=== PATIENT | female | born 1955 | race Caucasian/White ===

== ENCOUNTER → 2017-03-14 | Outpatient (CLI) | payer OTHER ==
--- NOTE | 2017-03-14 10:30 | MM ---
Reason for exam: additional evaluation requested from prior study. Last mammogram was performed 1 year ago. History: Patient is postmenopausal, has history of breast cancer at age 53, had previous chest radiation therapy at age 53, and history of other cancer. Reduction of the left breast, November 2010. Malignant right breast needle localzation of the right breast, September 16, 2009. Lumpectomy of the right breast, September 16, 2009. Malignant right mammotome panel of the right breast, September 07, 2009. Chemotherapy, 2009. Radiation therapy, 2009. Physical Findings: Nurse did not find any significant physical abnormalities on exam. MG Diagnostic Mammo w CAD EUGENIE Bilateral CC and MLO view(s) were taken. Prior study comparison: March 11, 2016, bilateral MG diagnostic mammo w CAD EUGENIE. March 09, 2015, bilateral MG diagnostic mammo w CAD EUGENIE. There are scattered fibroglandular densities. Post surgical changes in the right breast, stable. No significant new findings when compared with previous films. These results were verbally communicated with the patient and result sheet given to the patient on 03/14/17. ASSESSMENT: Benign, BI-RAD 2 RECOMMENDATION: Routine screening mammogram of both breasts in 1 year.
--- NOTE | 2017-03-14 10:42 | XR ---
EXAMINATION TYPE: XR chest 2V DATE OF EXAM: 03/14/2017 COMPARISON: 03/11/2016 INDICATION: Breast cancer TECHNIQUE: Frontal and lateral views of the chest are obtained. FINDINGS: The heart size is normal. The pulmonary vasculature is normal. The lungs are clear. Postsurgical changes are within the right breast. IMPRESSION: 1. No suspicious acute changes. No suspicious changes within the [id number] for metastatic disease .
== END | disposition home or self-care (01) ==
LOC: RADMAMWWP 08:50
PROVIDERS: ATTEND Internal Medicine Hematology & Oncology
DX: Z08 Encounter for follow-up examination after completed treatment for malignant neoplasm (principal); Z85.3 Personal history of malignant neoplasm of breast; I10 Essential (primary) hypertension; Z71.3 Dietary counseling and surveillance
CPT/HCPCS: 71020; G0204

== ENCOUNTER → 2018-03-15 | Outpatient (CLI) | payer OTHER ==
--- NOTE | 2018-03-15 14:31 | MM ---
Reason for exam: additional evaluation requested from prior study. Last mammogram was performed 1 year ago. History: Patient is postmenopausal, has history of breast cancer at age 53, had previous chest radiation therapy at age 53, and history of other cancer. Reduction of the left breast, November 2010. Malignant right breast needle localzation of the right breast, September 16, 2009. Lumpectomy of the right breast, September 16, 2009. Malignant right mammotome panel of the right breast, September 07, 2009. Chemotherapy, 2009. Radiation therapy, 2009. Physical Findings: Nurse did not find any significant physical abnormalities on exam. MG Diagnostic Mammo w CAD EUGENIE Bilateral CC and MLO view(s) were taken. Prior study comparison: March 14, 2017, bilateral MG diagnostic mammo w CAD [facility]. March 11, 2016, bilateral MG diagnostic mammo w CAD EUGENIE. There are scattered fibroglandular densities. Post surgical and post therapy changes right breast. Two oil cysts at the lumpectomy site. Some gradually increasing calcifications are also present here, suspect developing dystrophic calcifications. 6 month follow up recommended. These results were verbally communicated with the patient and result sheet given to the patient on 03/15/18. ASSESSMENT: Probably benign, BI-RAD 3 RECOMMENDATION: Follow-up diagnostic mammogram of the right breast in 6 months.
== END | disposition home or self-care (01) ==
LOC: RADMAMWWP 13:28
PROVIDERS: ATTEND Internal Medicine Hematology & Oncology
DX: Z08 Encounter for follow-up examination after completed treatment for malignant neoplasm (principal); Z85.3 Personal history of malignant neoplasm of breast
CPT/HCPCS: 77066

== ENCOUNTER → 2018-09-13 | Outpatient (CLI) | payer OTHER ==
--- NOTE | 2018-09-13 10:24 | MM ---
Reason for exam: follow-up at short interval from prior study. Last mammogram was performed 6 months ago. History: Patient is postmenopausal, has history of breast cancer at age 53, had previous chest radiation therapy at age 53, and history of other cancer. Reduction of the left breast, November 2010. Malignant right breast needle localzation of the right breast, September 16, 2009. Lumpectomy of the right breast, September 16, 2009. Malignant right mammotome panel of the right breast, September 07, 2009. Chemotherapy, 2009. Radiation therapy, 2009. Physical Findings: Nurse did not find any significant physical abnormalities on exam. MG Diagnostic Mammo RT w CAD CC and MLO view(s) were taken of the right breast. Prior study comparison: March 15, 2018, bilateral MG diagnostic mammo w CAD [facility]. March 14, 2017, bilateral MG diagnostic mammo w CAD EUGENIE. There are scattered fibroglandular densities. Stable post operative distortion with dystrophic calcifications. These results were verbally communicated with the patient and result sheet given to the patient on 09/13/18. ASSESSMENT: Benign, BI-RAD 2 RECOMMENDATION: Follow-up diagnostic mammogram of both breasts in 6 months. Back on schedule for February 2019.
== END | disposition home or self-care (01) ==
LOC: RADMAMWWP 09:33
PROVIDERS: ATTEND Obstetrics & Gynecology
DX: R92.8 Other abnormal and inconclusive findings on diagnostic imaging of breast (principal)
CPT/HCPCS: 77065

== ENCOUNTER → 2019-03-18 | Outpatient (CLI) | payer OTHER ==
--- NOTE | 2019-03-18 10:44 | MM ---
Reason for exam: follow-up at short interval from prior study. Last mammogram was performed 6 months ago. History: Patient is postmenopausal, has history of breast cancer at age 53, had previous chest radiation therapy at age 53, and history of other cancer. Reduction of the left breast, November 2010. Malignant right breast needle localzation of the right breast, September 16, 2009. Lumpectomy of the right breast, September 16, 2009. Malignant right mammotome panel of the right breast, September 07, 2009. Chemotherapy, 2009. Radiation therapy, 2009. Took hormonal contraceptives beginning at age 17. Physical Findings: Nurse did not find any significant physical abnormalities on exam. MG Diagnostic Mammo w CAD EUGENIE Bilateral CC and MLO view(s) were taken. Prior study comparison: September 13, 2018, right breast MG diagnostic mammo RT w CAD. March 15, 2018, bilateral MG diagnostic mammo w CAD [facility]IE. There are scattered fibroglandular densities. Post therapy change. These results were verbally communicated with the patient and result sheet given to the patient on 03/18/19. ASSESSMENT: Benign, BI-RAD 2 RECOMMENDATION: Follow-up diagnostic mammogram of both breasts in 1 year.
== END | disposition home or self-care (01) ==
LOC: RADMAMWWP 09:30
PROVIDERS: ATTEND Internal Medicine Hematology & Oncology
DX: Z08 Encounter for follow-up examination after completed treatment for malignant neoplasm (principal); Z85.3 Personal history of malignant neoplasm of breast
CPT/HCPCS: 77066

== ENCOUNTER → 2020-05-06 | Outpatient (CLI) | payer OTHER ==
--- NOTE | 2020-05-07 08:23 | MM ---
Reason for exam: additional evaluation requested from abnormal screening. Last mammogram was performed 1 year and 2 months ago. History: Patient is postmenopausal, has history of breast cancer at age 53, had previous chest radiation therapy at age 53, and history of other cancer. Reduction of the left breast, November 2010. Malignant right breast needle localzation of the right breast, September 16, 2009. Lumpectomy of the right breast, September 16, 2009. Malignant right mammotome panel of the right breast, September 07, 2009. Chemotherapy, 2009. Radiation therapy, 2009. Took hormonal contraceptives for 2 years beginning at age 17. Physical Findings: Nurse did not find any significant physical abnormalities on exam. MG Diagnostic Mammo w CAD EUGENIE Bilateral CC and MLO view(s) were taken. Prior study comparison: March 18, 2019, bilateral MG diagnostic mammo w CAD [facility]. September 13, 2018, right breast MG diagnostic mammo RT w CAD. There are scattered fibroglandular densities. Stable post operative changes right breast. No significant new findings when compared with previous films. These results were verbally communicated with the patient and result sheet given to the patient on 05/06/20. ASSESSMENT: Benign, BI-RAD 2 RECOMMENDATION: Follow-up diagnostic mammogram of both breasts in 1 year.
== END | disposition home or self-care (01) ==
LOC: RADMAMWWP 14:19
PROVIDERS: ATTEND Internal Medicine Hematology & Oncology
DX: Z08 Encounter for follow-up examination after completed treatment for malignant neoplasm (principal); Z85.3 Personal history of malignant neoplasm of breast
CPT/HCPCS: 77066

== ENCOUNTER → 2021-05-07 | Outpatient (CLI) | payer MEDICARE, OTHER ==
--- NOTE | 2021-05-10 12:33 | MM ---
Reason for exam: additional evaluation requested from prior study. Last mammogram was performed 1 year ago. History: Patient is postmenopausal, has history of breast cancer at age 53, had previous chest radiation therapy at age 53, and history of other cancer. Reduction of the left breast, November 2010. Malignant right breast needle localzation of the right breast, September 16, 2009. Lumpectomy of the right breast, September 16, 2009. Malignant right mammotome panel of the right breast, September 07, 2009. Chemotherapy, 2009. Radiation therapy, 2009. Took hormonal contraceptives for 2 years beginning at age 17. Physical Findings: Nurse did not find any significant physical abnormalities on exam. MG Diagnostic Mammo w CAD EUGENIE Bilateral CC and MLO view(s) were taken. Prior study comparison: May 06, 2020, bilateral MG diagnostic mammo w CAD [facility]. March 18, 2019, bilateral MG diagnostic mammo w CAD [facility]GENIE. There are scattered fibroglandular densities. Post surgical and post therapy change right breast. Associated benign fat necrosis calcifications. No significant new findings when compared with previous films. These results were verbally communicated with the patient and result sheet given to the patient on 05/07/21. ASSESSMENT: Benign, BI-RAD 2 RECOMMENDATION: Follow-up diagnostic mammogram of both breasts in 1 year.
== END | disposition home or self-care (01) ==
LOC: RADMAMWWP 12:45
PROVIDERS: ATTEND Internal Medicine Hematology & Oncology
DX: R92.1 Mammographic calcification found on diagnostic imaging of breast (principal)
CPT/HCPCS: 77066

== ENCOUNTER 2022-04-08 06:50 | Day surgery (SDC) | payer MEDICARE, OTHER ==
[2022-04-06 14:13] VITALS: BMI 33.6
[~2022-04-08 06:50] MED LIST: DEXAMETHASONE SOD PHOSPHATE 4 MG/ML 1 ML VIAL IV ONE; LACTATED RINGERS 1,000 ML IV SCH; MIDAZOLAM 2 MG/2 ML VIAL IV PRN; ONDANSETRON 4 MG/2 ML VIAL IVP ONE
[2022-04-08] MEDS ORDERED: fentaNYL (PF) 50 MCG/ML 2 ML AMP IV PRN (07:00)
[2022-04-08] MEDS ORDERED: MIDAZOLAM 2 MG/2 ML VIAL ONE (08:39)
[2022-04-08] MEDS ORDERED: GLYCOPYRROLATE 0.2 MG/ML 2 ML VIAL ONE (08:39)
[2022-04-08] MEDS ORDERED: PHENYLEPHRINE-0.9% NACL SYG 1,000 MCG/10 ML SYRINGE ONE (08:39)
[2022-04-08] MEDS ORDERED: PROPOFOL 10 MG/ML 20 ML VIAL IV ONE (08:39)
[2022-04-08] MEDS ORDERED: KETOROLAC 30 MG/ML 1 ML VIAL ONE (08:39)
[2022-04-08] MEDS ORDERED: NEOSTIGMINE 1 MG/ML 10 ML VIAL ONE (08:39)
[2022-04-08] MEDS ORDERED: SUCCINYLCHOLINE CHLORIDE 200 MG/10 ML VIAL IV ONE (08:39)
[2022-04-08] MEDS ORDERED: ROCURONIUM 10 MG/ML (5 ML VIAL) IV ONE (08:39)
[2022-04-08] MEDS ORDERED: fentaNYL (PF) 50 MCG/ML 2 ML AMP ONE (08:39)
[2022-04-08] MEDS ORDERED: ceFAZolin 1,000 MG in SODIUM CHLORIDE 0.9% 1,000 ML IRRIGATION ONE (08:44)
[2022-04-08 10:08] VITALS: TEMP 97.1
--- NOTE | 2022-04-08 10:17 | P.OP ---
Date of Procedure: 04/08/22 Preoperative Diagnosis: Left Achilles tendinitis Postoperative Diagnosis: Same Procedure(s) Performed: Secondary repair of left Achilles tendon with allograft Implants: Arthrex [id number] Anesthesia: MAYOA Surgeon: Main Wells Estimated Blood Loss (ml): 2 Pathology: other (Achilles tendon left) Condition: stable Disposition: PACU Description of Procedure: The patient was brought into the operating room. Timeout was taken to confirm correct patient identifiers, correct site of surgery and correct procedure. When all staff in the room were in agreement with the timeout, the patient was induced and placed under general anesthesia. The patient was then rolled onto the operative room table in the prone position. Appropriate padding was placed beneath any bony prominences and in the thoracic area. When anesthesia was satisfied with the positioning the patient, a well-padded tourniquet was placed on the left thigh. The left leg was then prepped and draped usual manner. The leg was exsanguinated and the tourniquet inflated to 250 mmHg. Attention was directed over the Achilles tendon just proximal to the insertion. A linear incision was made medial to the midline of the Achilles tendon. The incision was deepened down to the subcutaneous tissue careful to identify, avoid, and retract any neurovascular structures and cauterize any bleeding vessels. Blunt dissection was taken through the saphenous layer down to the peritenon. Peritenon was longitudinally incised and carefully reflected medially and laterally. 2 semielliptical converging incisions made in the area of the Achilles tendon that was thickened and pathologic. This is done full- thickness to the tendon to underlying adipose tissue. The interposing piece of pathologic tendon was removed and will be sent to pathology for evaluation further debridement of any abnormal appearing tendon was also performed at this time once completed the wound is thoroughly irrigated with an biotic saline. 0 Vicryl was then used to sew the Achilles tendon [id number]. The peritenon was then repaired with 4-0 Monocryl. An Arthrex AFLEX 500 allograft was placed over the repair site. The lateral side of the graft was sutured in place with 4-0 Monocryl and then the graft was pulled under tension and then cut to the appropriate size. The distal proximal ends were then tacked down to the Achilles tendon under tension and then the medial side repaired over the tendon. The graft was lying flat without any wrinkling. The wound is again irrigated thoroughly with antibiotic saline. Subcu closure was done with 4-0 Monocryl and skin closure done with 4-0 Stratafix in a running subcuticular manner. Dermal glue was applied across incision allowed to dry. Steri-Strips placed across incision. An Arthrex jumpstart dressing was placed directly over the incision and a bulky dry dressing applied to the ankle. The tourniquet was released and capillary refill return to all digits on the left foot. Then the patient was placed in a well-padded, well molded plaster posterior mold/sugar tong splint. Ankle was held in neutral position as it dried. The patient is a rolled onto the transfer table at which point anesthesia was reversed and then she was taken recovery with vital signs stable.
[2022-04-08] MEDS ORDERED: ALBUTEROL NEBULIZED 2.5 MG/3 ML INHALATION ONE (10:23)
[2022-04-08] MEDS ORDERED: HYDROmorphone 0.5 MG/0.5 ML SYRINGE IVP ONE ×3 (10:25→10:49)
[2022-04-08] MEDS ORDERED: LACTATED RINGERS 1,000 ML IV ONE (11:27)
[2022-04-08 11:49] VITALS: RESP 18
[2022-04-08 12:08] VITALS: BP 119/70; PULSE 82
== END 2022-04-08 13:25 | disposition home or self-care (01) ==
LOC: OR 06:50
PROVIDERS: ATTEND Podiatrist
DX: M76.62 Achilles tendinitis, left leg (principal); I10 Essential (primary) hypertension; Z97.3 Presence of spectacles and contact lenses; Z79.899 Other long term (current) drug therapy; Z88.5 Allergy status to narcotic agent; Z82.49 Family history of ischemic heart disease and other diseases of the circulatory system; Z83.3 Family history of diabetes mellitus; Z87.891 Personal history of nicotine dependence
CPT/HCPCS: 88304; 27654; Q4125; J2250; J0330; J1100; J2710; J0690 ×2; J2405; J3010; J1885; J2370; J2704; J1170

== ENCOUNTER → 2022-05-10 | Outpatient (CLI) | payer MEDICARE, OTHER ==
--- NOTE | 2022-05-11 07:41 | MM ---
Reason for Exam: Screening (asymptomatic). Last screening mammogram was performed 12 month(s) ago. Patient History: Menarche at age 12. First Full-Term at age 26. Postmenopausal. Patient has history of breast feeding. Other cancer. Breast cancer, right, age 53. Previous chest radiation therapy at age 53. Previous chemotherapy at age 53. Hormonal Contraceptives for 2 years from age 17 until age 19. 11/2010, Reduction on the Left side. 09/16/2009, Lumpectomy on the Right side. 09/16/2009, Malignant Excisional Biopsy on the right side. 09/07/2009, Malignant Core Biopsy on the right side. 2009, Chemotherapy. 2009, Radiation Therapy. Prior Study Comparison: 11/19/1992 Screening Mammogram, [facility]. 02/28/2011 Bilateral Diagnostic Mammogram, [facility]. 03/01/2012 Bilateral Diagnostic Mammogram, [facility]. 03/04/2013 Bilateral Diagnostic Mammogram, [facility]. 03/05/2014 Bilateral Diagnostic Mammogram, [facility]. 03/09/2015 Bilateral Diagnostic Mammogram, [facility]. 03/11/2016 Bilateral Diagnostic Mammogram, [facility]. 03/14/2017 Bilateral Diagnostic Mammogram, [facility]. 03/15/2018 Bilateral Diagnostic Mammogram, [facility]. 09/13/2018 Right Diagnostic Mammogram, [facility]. 03/18/2019 Bilateral Diagnostic Mammogram, [facility]. 05/06/2020 Bilateral Diagnostic Mammogram, [facility]. 05/07/2021 Bilateral Diagnostic Mammogram, [facility]. Tissue Density: There are scattered fibroglandular densities. Findings: Analyzed By CAD. There is no suspicious group of microcalcifications or new suspicious mass in either breast. Postop distortion right breast. Overall Assessment: Benign, BI-RAD 2 Management: Screening Mammogram of both breasts in 1 year. A clinical breast exam by your physician is recommended on an annual basis and results should be correlated with mammographic findings. Electronically signed and approved by: Ean Correia M.D. Radiologis
== END | disposition home or self-care (01) ==
LOC: RADMAMWWP 08:56
PROVIDERS: ATTEND Internal Medicine Hematology & Oncology
DX: Z12.31 Encounter for screening mammogram for malignant neoplasm of breast (principal); Z78.0 Asymptomatic menopausal state
CPT/HCPCS: 77063; 77067

== ENCOUNTER → 2023-05-12 | Outpatient (CLI) | payer MEDICARE, OTHER ==
--- NOTE | 2023-05-15 07:38 | MM ---
Reason for Exam: Screening (asymptomatic). Last screening mammogram was performed 12 month(s) ago. Patient History: Menarche at age 12. First Full-Term at age 26. Postmenopausal. Patient has history of breast feeding. Other cancer. Breast cancer, right, age 53. Previous chest radiation therapy at age 53. Previous chemotherapy at age 53. Hormonal Contraceptives for 2 years from age 17 until age 19. 11/2010, Reduction on the Left side. 09/16/2009, Lumpectomy on the Right side. 09/16/2009, Malignant Excisional Biopsy on the right side. 09/07/2009, Malignant Core Biopsy on the right side. 2009, Chemotherapy. 2009, Radiation Therapy. Prior Study Comparison: 05/06/2020 Bilateral Diagnostic Mammogram, [facility]. 05/07/2021 Bilateral Diagnostic Mammogram, [facility]. 05/10/2022 Bilateral MG 3D screening mammo w/cad, [facility]. Tissue Density: The breast tissue is almost entirely fat. Findings: Analyzed By CAD. Right breast biopsy clip. There is no suspicious group of microcalcifications or new suspicious mass. Benign-appearing calcifications bilaterally. Overall Assessment: Benign, BI-RAD 2 Management: Screening Mammogram of both breasts in [address] [facility] will attempt to contact patient to return for supplemental views and ultrasound if indicated. Patient should continue monthly self-breast exams. A clinical breast exam by your physician is recommended on an annual basis. This exam should not preclude additional follow-up of suspicious palpable abnormalities. Note on Erin scores and lifetime risk: 1. A Erin score greater than 3% is considered moderate risk. If this is the case, consider specialist referral to assess eligibility for a risk reducing agent. 2. If overall lifetime risk for the development of breast cancer is 20% or higher, the patient may qualify for future screening with alternating mammogram and breast MRI. Electronically signed and approved by: iMna Rahman DO
== END | disposition home or self-care (01) ==
LOC: RADMAMWWP 09:51
PROVIDERS: ATTEND Internal Medicine Hematology & Oncology
DX: Z12.31 Encounter for screening mammogram for malignant neoplasm of breast (principal); Z78.0 Asymptomatic menopausal state; Z85.3 Personal history of malignant neoplasm of breast
CPT/HCPCS: 77067

== ENCOUNTER → 2024-05-13 | Outpatient (CLI) | payer MEDICARE, OTHER ==
--- NOTE | 2024-05-14 07:53 | MM ---
Reason for Exam: Screening (asymptomatic). Last screening mammogram was performed 12 month(s) ago. Patient History: Menarche at age 12. First Full-Term at age 26. Postmenopausal. Patient has history of breast feeding. Other cancer. Breast cancer, right, age 53. Previous chest radiation therapy at age 53. Previous chemotherapy at age 53. Hormonal Contraceptives for 2 years from age 17 until age 19. 11/2010, Reduction on the Left side. 09/16/2009, Lumpectomy on the Right side. 09/16/2009, Malignant Excisional Biopsy on the right side. 09/07/2009, Malignant Core Biopsy on the right side. 2009, Chemotherapy. 2009, Radiation Therapy. Prior Study Comparison: 05/07/2021 Bilateral Diagnostic Mammogram, [facility]. 05/10/2022 Bilateral MG 3D screening mammo w/cad, [facility]. 05/12/2023 Bilateral MG screening mammo w CAD, [facility]. Tissue Density: There are scattered areas of fibroglandular density. Findings: Analyzed By CAD. There is no suspicious group of microcalcifications or new suspicious mass in either breast. Post therapeutic changes involving the right breast. Chronic nodularity is stable. Unchanged from 2019. Overall Assessment: Benign, BI-RAD 2 Management: Screening Mammogram of both breasts in 1 year. . Patient should continue monthly self-breast exams. A clinical breast exam by your physician is recommended on an annual basis. This exam should not preclude additional follow-up of suspicious palpable abnormalities. Note on Erin scores and lifetime risk: 1. A Erin score greater than 3% is considered moderate risk. If this is the case, consider specialist referral to assess eligibility for a risk reducing agent. 2. If overall lifetime risk for the development of breast cancer is 20% or higher, the patient may qualify for future screening with alternating mammogram and breast MRI. [facility], , 05/14/2024 7:48 AM. Electronically signed and approved by: Az Steen M.D. Radiologis
== END | disposition home or self-care (01) ==
LOC: RADMAMWWP 10:04
PROVIDERS: ATTEND Internal Medicine Hematology & Oncology
DX: Z12.31 Encounter for screening mammogram for malignant neoplasm of breast (principal); Z78.0 Asymptomatic menopausal state; Z85.3 Personal history of malignant neoplasm of breast; R92.323 Mammographic fibroglandular density, bilateral breasts
CPT/HCPCS: 77067